=== PATIENT | male | born 1990 | race Caucasian/White ===

== ENCOUNTER 2020-09-26 10:09 | Outpatient (REF) | payer OTHER, SELFPAY ==
--- NOTE | 2020-09-26 10:38 | ECG_ITS ---
Test Reason : Z01.810 PREOP Blood Pressure : / mmHG Vent. Rate : 060 BPM Atrial Rate : 060 BPM P-R Int : 124 ms QRS Dur : 088 ms QT Int : 430 ms P-R-T Axes : 064 043 033 degrees QTc Int : 430 ms Normal sinus rhythm Normal ECG No previous ECGs available Referred By: Rita Loco Electronically Signed By:Rajeev Ladd
[2020-09-26 10:48] LABS: MANUAL DIFF FLAG NO
[2020-09-26 10:54] LABS: Basophils Percent Auto 0.4 % (0-2); Eosinophils Absolute Auto 0.1 X10*3/uL (0.0-0.4); Eosinophils Percent Auto 1.3 % (0-4); Hemoglobin 13.9 g/dl (14.0-18.0); Imm Gran Abs Auto 0.01 X10*3/uL (0.00-0.03); Imm Gran Pct Auto 0.2 % (0.0-0.4); Lymphocytes Percent Auto 34.8 % (20-40); Mean Corpuscular HGB Conc 32.3 g/dl (31.0-36.0); Mean Corpuscular Hemoglobin 29.4 pg (27.0-33.0); Mean Corpuscular Volume 90.9 fL (80-98); Monocytes Absolute Auto 0.4 X10*3/uL (0.1-1.2); Monocytes Percent Auto 7.7 % (2-11); Neutrophils Absolute Auto 3.1 X10*3/uL (2.0-8.3); Neutrophils Percent Auto 55.6 % (45-73); Platelet Count 320 X10*3/uL (160-400); Red Blood Count 4.73 X10*6/uL (4.60-5.80); Red Cell Distribution Width 13.6 % (11.0-16.0); White Blood Count 5.6 X10*3/uL (4.8-10.8)
[2020-09-26 11:08] LABS: Prothrombin Time 12.4 SEC (10.8-13.0)
[2020-09-26 11:11] LABS: Partial Thromboplastin Time 35.2 SEC (24.1-38.0)
[2020-09-26 11:20] LABS: Alanine Aminotransferase 43 U/L (0-40); Albumin Level 4.5 g/dL (3.5-5.0); Alkaline Phosphatase 52 U/L (39-117); Anion Gap 11 (12-20); Aspartate Amino Transferase 24 U/L (5-37); Bilirubin Total 0.9 mg/dL (0.0-1.0); Blood Urea Nitrogen 16 mg/dL (9-16); Calcium 9.7 mg/dL (8.4-10.2); Carbon Dioxide 30 mmol/L (22-29); Chloride 103 mmol/L (96-108); Estimated Glomerular Filt Rate > 60; Glucose Fasting 88 mg/dL (60-99); Potassium 4.4 mmol/L (3.3-5.1); Sodium 140 mmol/L (135-145); Total Protein 7.7 g/dL (6.5-8.0)
[2020-09-26 11:42] LABS: Thyroid Stimulating Hormone 1.16 uIU/mL (0.32-4.0)
[2020-09-26 11:44] LABS: HIV AB/AG Nonreactive (Nonreactive); HIV Num 1 0.06 S/CO (0.00-0.99)
== END 2020-09-26 10:10 | disposition home or self-care (01) ==
LOC: HO.LAB 10:09
PROVIDERS: PCP Internal Medicine; Visit Provider Internal Medicine
DX: Z01.810 Encounter for preprocedural cardiovascular examination (principal); D64.9 Anemia, unspecified; E66.9 Obesity, unspecified; Z20.822 Contact with and (suspected) exposure to COVID-19; Z11.4 Encounter for screening for human immunodeficiency virus [HIV]
CPT/HCPCS: 36415; 80053; 84443; 85025; 85610; 85730; 87389; 93005

== ENCOUNTER 2020-11-16 06:21 | Outpatient (REF) | payer OTHER, SELFPAY ==
[2020-11-16 07:39] LABS: MANUAL DIFF FLAG NO
[2020-11-16 07:44] LABS: Basophils Percent Auto 0.4 % (0-2); Eosinophils Absolute Auto 0.1 X10*3/uL (0.0-0.4); Eosinophils Percent Auto 1.5 % (0-4); Hematocrit 42.2 % (42-52); Imm Gran Abs Auto 0.01 X10*3/uL (0.00-0.03); Imm Gran Pct Auto 0.2 % (0.0-0.4); Lymphocytes Absolute Auto 1.9 X10*3/uL (1.2-4.9); Lymphocytes Percent Auto 39.9 % (20-40); Mean Corpuscular HGB Conc 33.2 g/dl (31.0-36.0); Mean Corpuscular Hemoglobin 29.6 pg (27.0-33.0); Mean Corpuscular Volume 89.2 fL (80-98); Mean Platelet Volume 10.4 fL (9.4-12.4); Monocytes Absolute Auto 0.4 X10*3/uL (0.1-1.2); Monocytes Percent Auto 7.3 % (2-11); Neutrophils Absolute Auto 2.4 X10*3/uL (2.0-8.3); Neutrophils Percent Auto 50.7 % (45-73); Platelet Count 271 X10*3/uL (160-400); Red Blood Count 4.73 X10*6/uL (4.60-5.80); Red Cell Distribution Width 13.5 % (11.0-16.0); White Blood Count 4.8 X10*3/uL (4.8-10.8)
[2020-11-16 07:47] LABS: Prothrombin Time 12.1 SEC (10.8-13.0)
[2020-11-16 07:50] LABS: Partial Thromboplastin Time 34.8 SEC (24.1-38.0)
[2020-11-16 08:08] LABS: Alanine Aminotransferase 35 U/L (0-40); Albumin Level 4.3 g/dL (3.5-5.0); Alkaline Phosphatase 53 U/L (39-117); Anion Gap 13 (12-20); Aspartate Amino Transferase 23 U/L (5-37); Bilirubin Total 0.6 mg/dL (0.0-1.0); Blood Urea Nitrogen 13 mg/dL (9-16); Calcium 9.2 mg/dL (8.4-10.2); Carbon Dioxide 26 mmol/L (22-29); Chloride 104 mmol/L (96-108); Cholesterol 167 mg/dL; Estimated Glomerular Filt Rate > 60; Glucose Fasting 100 mg/dL (60-99); HDL Cholesterol 43 mg/dL; LDL Cholesterol Calculated 110 mg/dl; Potassium 4.4 mmol/L (3.3-5.1); Sodium 139 mmol/L (135-145); Total Protein 7.5 g/dL (6.5-8.0); Triglycerides 74 mg/dL
[2020-11-16 08:45] LABS: HIV AB/AG Nonreactive (Nonreactive); HIV Num 1 0.04 S/CO (0.00-0.99)
[2020-11-20 13:17] LABS: Vitamin D 25-OH, D2 <4 ng/mL; Vitamin D 25-OH, D3 31 ng/mL; Vitamin D 25-OH, Total 31 ng/mL (30-100)
== END 2020-11-16 06:22 | disposition home or self-care (01) ==
LOC: HO.LAB 06:21
PROVIDERS: PCP Internal Medicine; Visit Provider Internal Medicine
DX: Z01.818 Encounter for other preprocedural examination (principal); D64.9 Anemia, unspecified; E66.9 Obesity, unspecified; E78.5 Hyperlipidemia, unspecified; E55.9 Vitamin D deficiency, unspecified
CPT/HCPCS: 36415; 80053; 80061; 82306; 85025; 85610; 85730; 87389

== ENCOUNTER → 2021-11-25 14:49 | Outpatient (BNVA) | payer OTHER, SELFPAY | PROVIDERS: PCP Internal Medicine; Visit Provider Surgery | DX: K42.9 Umbilical hernia without obstruction or gangrene (principal); E66.9 Obesity, unspecified; Z68.32 Body mass index [BMI] 32.0-32.9, adult; F32.0 Major depressive disorder, single episode, mild | CPT/HCPCS: 99202 ==

== ENCOUNTER → 2022-01-28 14:51 | Outpatient (BNVA) | payer OTHER, SELFPAY | PROVIDERS: PCP Internal Medicine; Visit Provider Surgery | DX: K42.9 Umbilical hernia without obstruction or gangrene (principal); E66.9 Obesity, unspecified | CPT/HCPCS: 99212 ==

== ENCOUNTER → 2022-02-20 09:23 | Day surgery (SDC) | payer OTHER, SELFPAY ==
[2022-02-14 14:44] VITALS: BMI 32.5
--- NOTE | 2022-02-19 12:09 | HO.ANESPROP2 ---
Documented by User: Berenice Meza NP 02/19/22 12:10 HPI - Anesthesia Eval Consult details Narrative: 31yo M for Open Hernia Repair Umbilical,poss mesh PMFSH Active Problems Active Problems: All Active Problems (Updated 02/14/22 @ 14:42 by Soheila Contreras RN) Pre-op evaluation (Acute) Umbilical mass (Acute) Recurrent umbilical hernia (Acute) Umbilical hernia (Acute) Obesity (BMI 30-39.9) (Acute) Obese (Acute) Depression (Acute) Past Medical History Medical History Depression Obese Obesity (BMI 30-39.9) Family History Family History Mother No problems noted. Father No problems noted. Surgical History Surgical History No pertinent past surgical history Social History Social History Housing: Apartment Alcohol intake: current Alcohol intake frequency: does not drink Alcohol type: beer, wine and hard liquor Patient Tobacco Use Status: Never used Tobacco e-Cigarette/Vaping Use: Never Used Second Hand Smoke Exposure: No Are you DNR?: No Advance Directives: No Advance Directives Information Provided: Yes Recently lost weight without trying: No Nutrition Risks: No Nutritional Risk service: No Current occupational status: employed Cognitive needs: No Hearing needs: No Vision needs: No Meds Allergies Allergy/AdvReac Type Severity Reaction Status Date / Time seafood Allergy Severe throat Verified 02/14/22 14:44 swelling Active Medications: Current Medications Cefazolin Sodium/Dextrose (Ancef) 2 gm in 50 mls @ 100 mls/hr IV ONCE ONE Stop: 02/19/22 12:20 Home Medications Medication Instructions Recorded Confirmed Last Taken Type No Known Home Meds 11/13/21 02/14/22 Unknown History Exam Exam Date and Time: February 19, 2022 1209 Height,Weight and Vital Signs: Height 5 ft 7 in Weight 94.347 kg Assessment and Plan Assessment Anesthesia Assessment: Chart Reviewed Documented by User: Bridgett Santos MD 02/20/22 11:09 PMF Past Medical History Medical History Depression Obese Obesity (BMI 30-39.9) Family History Family History Mother No problems noted. Father No problems noted. Surgical History Surgical History No pertinent past surgical history History of Problems with Anesthesia: No Social History Social History Housing: Apartment Alcohol intake: current Alcohol intake frequency: does not drink Alcohol type: beer, wine and hard liquor Patient Tobacco Use Status: Never used Tobacco e-Cigarette/Vaping Use: Never Used Second Hand Smoke Exposure: No Are you DNR?: No Advance Directives: No Advance Directives Information Provided: Yes Recently lost weight without trying: No Nutrition Risks: No Nutritional Risk service: No Current occupational status: employed Cognitive needs: No Hearing needs: No Vision needs: No Meds Allergies Allergy/AdvReac Type Severity Reaction Status Date / Time seafood Allergy Severe throat Verified 02/14/22 14:44 swelling Home Medications Medication Instructions Recorded Confirmed Last Taken Type No Known Home Meds 11/13/21 02/14/22 Unknown History Exam Airway Mallampati Class: I TM Dist: >3cm Neck ROM: Full Loose/Missing/Broken Teeth: No Heart: RRR Lungs: CTA Assessment and Plan Assessment Anesthesia Assessment: Anesthesia Plan Discussed and Chart Reviewed Final Anesthetic Review History of Problems with Anesthesia: No NPO: Yes ASA Class: II Final Preanesthetic Review: Meds/Allgs Chart Reviewed, Consent Obtained/Reviewed and Anes Risks/Benef Reviewed Patient Risk: Low Procedure Risk: Low Anesthetic Plan Anesthetic Plan: GA Disposition: Standard PACU
[2022-02-20] VITALS (8 sets, daily range): BP systolic 125–141; BP diastolic 74–87; PULSE 67–85; RESP 16–18; TEMP 36.5–36.6; O2SAT 97–100
--- NOTE | 2022-02-20 11:12 | MHC.SHP ---
Pre-Procedural Eval Section A Date of Service: 02/20/22 The patient is an INPATIENT: No The History & Physical has been completed within 30 days and I have reviewed it.: Yes Section B Chief Complaint: Umbilical hernia without obstruction or gangrene Allergies: Allergies Allergy/AdvReac Type Severity Reaction Status Date / Time seafood Allergy Severe throat Verified 02/14/22 14:44 swelling Plan I have reviewed the history and physical and performed a pertinent physical examination on my patient. No changes have occurred unless specified.
--- NOTE | 2022-02-20 11:12 | W.PM.OPN ---
Operative Note Operative Note Date of Service: 02/20/22 Narrative: Preop diagnosis: [Umbilical hernia, morbid obesity] Postop diagnosis: [Same] Procedure: [Open umbilical hernia repair] Surgeon: Maurice Hernandez MD Assist: [None] Anesthesia: [General LMA] Estimated blood loss: [0cc] Specimen: [None] Intraoperative findings: [Viable properitoneal fat] Indications: [The patient is a 31-year-old gentleman with a symptomatic umbilical hernia that is progressively bothersome with exertion. The options including laparoscopic repair, 2nd opinion and continued observation were reviewed with him. The inherent risks of bleeding, infection, hernia recurrence especially if weight gain occurs were all discussed. The importance of following postoperative instructions were also reviewed and apparently understood. The patient seemed understand his options, and requested I proceed.] Procedure: [The patient was identified in the preoperative holding area and again in the operating suite. Procedure was confirmed with the patient. 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 He was induced and general anesthesia administered by the anesthesiologist. Ancef per weight based protocol was ordered. Abdomen was widely prepped and draped in the usual manner for surgery using chlorhexidine. At this point, the patient suddenly became agitated then began to vomit around the LMA with bilious, non food, nonbloody material. The patient was rapidly turned to his side to prevent aspiration. Please see anesthesia notes for details. Given the possibility of aspiration, in discussion the anesthesiologist, a decision was made to abort and reschedule this elective case. At the patient's request I spoke with his mother in the waiting area consultation room & explained his vomiting, concern for aspiration & need to reschedule. I also met with her when the pt was more awake and answering questions.
--- NOTE | 2022-02-20 12:02 | HO.ADDICT_ITS ---
History of Present Illness Chief Complaint: Umbilical hernia without obstruction or gangrene Diagnostics Vital Signs (24Hr): Vital Signs - 24 hr 02/20/22 09:39 02/20/22 11:57 Temperature 98 F 97.7 F Pulse Rate 78 85 Respiratory Rate 18 16 Blood Pressure 132/74 141/87 H Pulse Oximetry 98 100 Oxygen Delivery Method Room Air Shovel Mask Oxygen Flow Rate 6 BMI result Body Mass Index 32.5 Medications Medications Current Medications Acetaminophen (Acetaminophen 325 Mg Tablet) 650 mg PO ONCE PRN PRN Reason: Pain, Mild (Pain Scale 1-3) Albuterol Sulfate (Albuterol Sulfate (0.083%) 2.5 Mg/3 Ml Vial.Neb) 2.5 mg INHALE ONCE PRN PRN Reason: Wheezing Fentanyl (Fentanyl Citrate/Pf 100 Mcg/2 Ml Vial) 50 mcg IVPUSH Q5M PRN; Protocol PRN Reason: Pain, Severe (Pain Scale 7-10) Fentanyl (Fentanyl Citrate/Pf 100 Mcg/2 Ml Vial) 25 mcg IVPUSH Q5M PRN; Protocol PRN Reason: Pain, Moderate (Pain Scale 4-6 Lactated Ringer's (Lr) 1,000 mls @ 100 mls/hr IVCONT .Q10H ARTIS Ondansetron HCl (Ondansetron Hcl 4 Mg/2 Ml Vial) 4 mg IVPUSH ONCE PRN PRN Reason: Nausea and Vomiting Oxycodone HCl (Oxycodone Hcl Immed Release 5 Mg Tablet) 5 mg PO ONCE PRN PRN Reason: Pain, Severe (Pain Scale 7-10) Allergies Allergies Allergy/AdvReac Type Severity Reaction Status Date / Time seafood Allergy Severe throat Verified 02/14/22 14:44 swelling Assessment & Plan I spent minutes with the patient and/or on the patient floor today, greater than?50% of which was spent counseling/coordinating care. [facility] Past Medical History Medical History Depression Obese Obesity (BMI 30-39.9) Family History Family History Mother No problems noted. Father No problems noted. Surgical History Surgical History No pertinent past surgical history Social History Social History Housing: Apartment Alcohol intake: current Alcohol intake frequency: does not drink Alcohol type: beer, wine and hard liquor Patient Tobacco Use Status: Never used Tobacco e-Cigarette/Vaping Use: Never Used Second Hand Smoke Exposure: No Are you DNR?: No Advance Directives: No Advance Directives Information Provided: Yes Recently lost weight without trying: No Nutrition Risks: No Nutritional Risk service: No Current occupational status: employed Cognitive needs: No Hearing needs: No Vision needs: No
== END | disposition home or self-care (01) ==
PROVIDERS: PCP Internal Medicine; Visit Provider Surgery
PROC: (CPT 49585; principal; 2022-02-20 10:50)
DX: K42.9 Umbilical hernia without obstruction or gangrene (principal); E66.01 Morbid (severe) obesity due to excess calories; Z68.32 Body mass index [BMI] 32.0-32.9, adult; K91.81 Other intraoperative complications of digestive system; Y92.234 Operating room of hospital as the place of occurrence of the external cause; Y83.8 Other surgical procedures as the cause of abnormal reaction of the patient, or of later complication, without mention of misadventure at the time of the procedure; R11.10 Vomiting, unspecified; R45.1 Restlessness and agitation
CPT/HCPCS: 49585; J0690; J2250; J2795; J3010

== ENCOUNTER 2022-04-03 05:50 | Day surgery (SDC) | payer OTHER, SELFPAY ==
[2022-03-27 16:42] VITALS: BMI 33.2
--- NOTE | 2022-03-28 14:37 | HO.ANESPROP2 ---
Documented by User: Berenice Meza NP 03/28/22 14:40 HPI - Anesthesia Eval Consult details Narrative: 31yo M for Hernia Repair Umbilical possible mesh 02/2022 - Pt vomited small amount of green bile after induction. Case aborted. Pt observed in PACU. No s/s of aspiration and discharged home. PMFSH Active Problems Active Problems: All Active Problems (Updated 03/27/22 @ 16:46 by Luisa Grey RN) Obese (Acute) Pre-op evaluation (Acute) Umbilical mass (Acute) Recurrent umbilical hernia (Acute) Umbilical hernia (Acute) Obesity (BMI 30-39.9) (Acute) Depression (Acute) Past Medical History Medical History Anesthesia complication Anxiety Depression Obesity (BMI 30-39.9) Family History Family History Mother No problems noted. Father No problems noted. Surgical History Surgical History Hx of wisdom tooth extraction History of Problems with Anesthesia: No Social History Social History Housing: Apartment Alcohol intake: current Alcohol intake frequency: does not drink Alcohol type: beer, wine and hard liquor Patient Tobacco Use Status: Never used Tobacco e-Cigarette/Vaping Use: Never Used Second Hand Smoke Exposure: No Are you DNR?: No Advance Directives: No Advance Directives Information Provided: Yes Advance Directives on File: No service: No Current occupational status: employed Cognitive needs: No Hearing needs: No Vision needs: No Meds Allergies Allergy/AdvReac Type Severity Reaction Status Date / Time seafood Allergy Severe throat Verified 04/03/22 06:17 swelling Home Medications Medication Instructions Recorded Confirmed Last Taken Type hydroxyzine HCl 25 mg tablet 1 tab PO BEDTIME PRN Insomnia 03/27/22 03/27/22 Unknown History sertraline 100 mg tablet (Zoloft) 2 tab PO DAILY 04/03/22 04/03/22 Unknown History Exam Exam Date and Time: March 28, 2022 1437 Height,Weight and Vital Signs: Height 5 ft 7 in Weight 96.162 kg Assessment and Plan Assessment Anesthesia Assessment: Chart Reviewed Final Anesthetic Review History of Problems with Anesthesia: No Documented by User: Domenico Jimenez MD 04/03/22 08:43 PMFSH Past Medical History Medical History Anesthesia complication Anxiety Depression Obesity (BMI 30-39.9) Family History Family History Mother No problems noted. Father No problems noted. Family history of problems with anesthesia: No Surgical History Surgical History Hx of wisdom tooth extraction Social History Social History Housing: Apartment Alcohol intake: current Alcohol intake frequency: does not drink Alcohol type: beer, wine and hard liquor Patient Tobacco Use Status: Never used Tobacco e-Cigarette/Vaping Use: Never Used Second Hand Smoke Exposure: No Are you DNR?: No Advance Directives: No Advance Directives Information Provided: Yes Advance Directives on File: No service: No Current occupational status: employed Cognitive needs: No Hearing needs: No Vision needs: No Meds Allergies Allergy/AdvReac Type Severity Reaction Status Date / Time seafood Allergy Severe throat Verified 04/03/22 06:17 swelling Home Medications Medication Instructions Recorded Confirmed Last Taken Type hydroxyzine HCl 25 mg tablet 1 tab PO BEDTIME PRN Insomnia 03/27/22 03/27/22 Unknown History sertraline 100 mg tablet (Zoloft) 2 tab PO DAILY 04/03/22 04/03/22 Unknown History Exam Airway Mallampati Class: III TM Dist: >3cm Neck ROM: Full Loose/Missing/Broken Teeth: No Heart: rrr+[id number] Lungs: cta b/l Assessment and Plan Assessment Anesthesia Assessment: Anesthesia Plan Discussed Final Anesthetic Review Family History of Problems with Anesthesia: No NPO: Yes ASA Class: II Final Preanesthetic Review: No Changes in Pt Med Stat, Meds/Allgs Chart Reviewed, Consent Obtained/Reviewed and Anes Risks/Benef Reviewed Patient Risk: Intermediate Procedure Risk: Intermediate Assessment/Block/Sedation in SS: Assess/Block/Sedation-SS Anesthetic Plan Anesthetic Plan: GA and Agree w/ Assess. and Plan Disposition: Standard PACU
[2022-04-03] VITALS (9 sets, daily range): BP systolic 116–130; BP diastolic 72–83; PULSE 66–92; RESP 12–16; TEMP 36.1–36.3; O2SAT 96–99
[2022-04-03] MEDS: Lactated Ringers 1,000 ML 100 ML IVCONT (06:33)
--- NOTE | 2022-04-03 07:15 | MHC.SHP ---
Pre-Procedural Eval Section A Date of Service: 04/03/22 The patient is an INPATIENT: No The History & Physical has been completed within 30 days and I have reviewed it.: Yes Section B Chief Complaint: Open umbilical hernia repair, poss mesh Allergies: Allergies Allergy/AdvReac Type Severity Reaction Status Date / Time seafood Allergy Severe throat Verified 04/03/22 06:17 swelling Plan I have reviewed the history and physical and performed a pertinent physical examination on my patient. No changes have occurred unless specified.
--- NOTE | 2022-04-03 07:17 | W.PM.OPN ---
Operative Note Operative Note Date of Service: 04/03/22 Narrative: Preop diagnosis: [Umbilical hernia] Postop diagnosis: [Same] Procedure: [] Surgeon: Maurice Hernandez MD Assist: [None] Anesthesia: [] Estimated blood loss: [3cc] Specimen: [] Intraoperative findings: [10mm umbilical hernia defect ] Indications: [The patient is a 31-year-old gentleman with a symptomatic umbilical hernia desired repair. During his 1st attempt, the patient had LMA/GET and for unclear reasons began vomiting around the LMA. He had no problems postoperatively but the procedure was aborted. We met in the office with his mother at his request and using an diplomatic interpreter explained about changing the plan to general endotracheal anesthesia to repair the hernia, the possible need for mesh in the activity restrictions. The inherent risks of bleeding, infection, hernia recurrence especially if weight gain occurs, mesh complications that could require another operation and chronic pain issues were all discussed and apparently understood. The patient seemed understand his options and wanted to proceed.] Procedure: [The patient was identified in the preoperative holding area and again in the operating suite. Procedure was confirmed with the patient. 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 He was induced and general anesthesia administered by the anesthesiologist. Ancef per weight based protocol was ordered. Abdomen was widely prepped and draped in the usual manner for surgery using chlorhexidine. Preemptive local of Ropivicaiine, 0.5% w/epi was infiltrated in the skin and subcutaneous tissues and a curvilinear infraumbilical incision made sharply. Dissection was carried down to the umbilical base and the umbilicus circumferentially dissected and the hernia sac dissected from the posterior umbilical dermis taking care to avoid injury to the umbilical skin. The hernia contained viable properitineal fat & was reduced and the 10mm fascial defect transversely closed with 0 Prolene sutures. The operative field was inspected for hemostasis then the umbilical dermis tacked down to the fascia and hernia repair with 3-0 Polysorb suture. Subcutaneous tissues were closed with 3-0 Polysorb suture and the skin closed with a running 4-0 Monocryl subcuticular suture. There is washed and dried, Mastisol and Steri-Strips applied followed by sterile dressings. The patient tolerated the procedure well and was sent to the recover in stable condition. All sponge instrument counts were correct x2.
== END 2022-04-03 10:24 | disposition home or self-care (01) ==
PROVIDERS: PCP Internal Medicine; Visit Provider Surgery
PROC: (CPT 49585; principal; 2022-04-03 07:30)
DX: K42.9 Umbilical hernia without obstruction or gangrene (principal); E66.9 Obesity, unspecified; F32.0 Major depressive disorder, single episode, mild; Z68.33 Body mass index [BMI] 33.0-33.9, adult; Z79.899 Other long term (current) drug therapy
CPT/HCPCS: 49585; J0690; J1100; J1170; J2250; J2405; J3010